=== PATIENT | female | born 1945 | race Caucasian/White ===

== ENCOUNTER 2018-07-15 09:04 | Emergency (ER) | payer MEDICARE, OTHER ==
--- NOTE | 2018-07-15 09:12 | UC ---
Laceration HPI - HPI Summary HPI Summary: 72 yo female presents with left finger laceration. She tells me that she was out to dinner last night and cut her left index finger on a chair. Took a "chunk " out of her finger. She applied a bandage and the bleeding stopped. This morning removed the bandage and it was bleeding again. Unsure date of last tetanus. - History Of Current Complaint Stated Complaint: FINGER LAC Time Seen by Provider: 07/15/18 09:12 Hx Obtained From: Patient Laceration Location: Finger Mechanism Of Injury: Sharp Trauma Onset/Duration: Sudden Onset Severity: Mild Pain Intensity: 4 Pain Scale Used: 0-10 Numeric - Allergies/Home Medications Allergies/Adverse Reactions: Allergies Allergy/AdvReac Type Severity Reaction Status Date / Time codeine Allergy anaph Verified 07/15/18 09:23 Home Medications: Home Medications Escitalopram (NF) [Lexapro 10 mg (NF)] 10 mg PO DAILY 07/15/18 [History Confirmed 07/15/18] Levothyroxine Sodium 1 tab PO DAILY 07/15/18 [History Confirmed 07/15/18] PMH/Surg Hx/FS Hx/Imm Hx Endocrine History: Hypothyroidism Psychological History: Anxiety - Family History Known Family History: Positive: Hypertension - Social History Occupation: Retired Lives: With Family Alcohol Use: Occasionally Substance Use Type: None Smoking Status (MU): Never Smoked Tobacco Review of Systems All Other Systems Reviewed And Are Negative: Yes Constitutional: Positive: Negative Skin: Positive: Other - left index finger laceration Respiratory: Positive: Negative Cardiovascular: Positive: Negative Neurovascular: Positive: Negative Musculoskeletal: Positive: Negative Neurological: Positive: Negative Physical Exam - Summary Physical Exam Summary: GENERAL: NAD. WDWN. No pain distress. SKIN: Left index finger: Finger pad with 7mm superficial shear-like laceration. Mild active bleeding at inferior aspect. CHEST: No accessory muscle use. Breathing comfortably and in no distress. CV: Pulses intact. Cap refill <2seconds MSK: Left index finger FROM. NEURO: Alert. PSYCH: Age appropriate behavior. Triage Information Reviewed: Yes Vital Signs: Vital Signs: Temp Pulse Resp BP Pulse Ox 98.3 F 76 16 159/101 98 07/15/18 09:19 07/15/18 09:19 07/15/18 09:19 07/15/18 09:19 07/15/18 09:19 Vital Signs Reviewed: Yes Laceration Course/Dx - Course/Dx Course Of Treatment: Area was irrigated with 100mL NS. tdap updated today. 1.0cm gel foam applied to the area and bandaged with tubegauze. - Diagnosis Provider Diagnosis: Laceration of left index finger Discharge - Sign-Out/Discharge Documenting (check all that apply): Patient Departure All imaging exams completed and their final reports reviewed: No Studies - Discharge Plan Condition: Stable Disposition: HOME Patient Education Materials: Laceration (DC) Referrals: Blade Lowry MD [Medical Doctor] - Additional Instructions: If you develop a fever, shortness of breath, chest pain, new or worsening symptoms - please call your PCP or go to the ED. Your blood pressure was high at todays visit. Please see your primary provider within 4 weeks for recheck and re-evaluation. 1) Keep today's bandaged intact for 24 hours and then may remove and cover with a band-aid until well healed (approx 7-14 days) - Billing Disposition and Condition Condition: STABLE Disposition: Home - Attestation Statements Provider Attestation: Per institutional requirements, I have reviewed the chart, however, I was not consulted specifically or made aware of this patient by the midlevel provider. I did not personally evaluate, interact with , or disposition this patient.
[2018-07-15 09:23] VITALS: BP 159/101
[2018-07-15] MEDS ORDERED: Gelfoam 12-7 ADSORBABL SPONGE* 1 EA SPONGE TOPICAL ONE (09:39)
[2018-07-15] MEDS ORDERED: Tetan/Diph/Pertus SYR(Tdap)* 0.5 ML SYR(BOOSTRIX) use SYR IM ONE (09:39)
== END 2018-07-15 10:06 | disposition home or self-care (01) ==
LOC: UCEAST 09:04
DX: S61.211A Laceration without foreign body of left index finger without damage to nail, initial encounter (principal); Z88.5 Allergy status to narcotic agent; W45.8XXA Other foreign body or object entering through skin, initial encounter; Y92.9 Unspecified place or not applicable
CPT/HCPCS: 90471; 90715; 99212; A9270-GY; G0463

== ENCOUNTER 2018-07-28 12:44 | Emergency (ER) | payer MEDICARE, OTHER ==
[2018-07-28 13:16] VITALS: BP 156/78
--- NOTE | 2018-07-28 13:48 | UC ---
Skin Complaint HPI - HPI Summary HPI Summary: L index finger painful and swollen 4 days. she had a very large cut a couple of weeks ago and came to urgent care for repair. gelfoam used and she is wondering if there is infection. she can't tell if there was discharge 2 days ago. - History of Current Complaint Chief Complaint: UCWounds Time Seen by Provider: 07/28/18 13:42 Stated Complaint: RECHECK OF FINGER WOUND Hx Obtained From: Patient Pain Intensity: 3 Pain Scale Used: 0-10 Numeric - Allergy/Home Medications Allergies/Adverse Reactions: Allergies Allergy/AdvReac Type Severity Reaction Status Date / Time codeine Allergy anaph Verified 07/28/18 13:16 Home Medications: Home Medications Calcium Carbonate [Calcium] 1 tab PO DAILY 07/28/18 [History Confirmed 07/28/18] Cholecalciferol (Vitamin D3) [Kp Vitamin D3] 1,000 unit PO DAILY 07/28/18 [ History Confirmed 07/28/18] Multivitamin [Multivitamins] 1 cap PO DAILY 07/28/18 [History Confirmed 07/28/18 ] Vened[place]ia-3 Fatty Acids/Fish Oil [Fish Oil 1,000 mg Softgel] 1 tab PO DAILY [History Confirmed 07/28/18] PMH/Surg Hx/FS Hx/Imm Hx Previously Healthy: Yes Endocrine History: Thyroid Disease - Surgical History Surgical History: Yes Surgery Procedure, Year, and Place: tubes tied. T&A - Family History Known Family History: Positive: Hypertension - Social History Alcohol Use: None Substance Use Type: None Smoking Status (MU): Never Smoked Tobacco Review of Systems All Other Systems Reviewed And Are Negative: Yes Constitutional: Positive: Negative. Negative: Fever Respiratory: Positive: Negative Cardiovascular: Positive: Negative Neurovascular: Negative: Decreased Sensation, Decreased Pulses Musculoskeletal: Positive: Other: - L index pain Physical Exam Triage Information Reviewed: Yes Appearance: Well-Appearing Vital Signs: Initial Vital Signs Temp 98 F 07/28/18 13:10 Pulse 65 07/28/18 13:10 Resp 18 07/28/18 13:10 BP 156/78 07/28/18 13:10 Pulse Ox 97 07/28/18 13:10 Neck: Positive: Supple Respiratory Exam: Normal Cardiovascular Exam: Normal Cardiovascular: Positive: Brisk Capillary Refill - R hand Musculoskeletal: Positive: Other: - L index had healing wound w/ small piece of gelfoam still on it. no purulent material. somewhat tender and swollen. No joint involvement. ROM intact of entire L hand and fingers. No nail involvement. Course/Dx - Course Course Of Treatment: Recent L index laceration recently repaired w/ gelfoam. Pt noticed L index pad swelling and becoming more red ; cellulitis dx'd. Will tx w/ antibx. Exam did not demonstrate fever, joint involvement and the streaking the patient thought she saw appeared to be in both hands which leads one to believe this was just when she closed both of her hands tightly. Streaks resolved after keeping her hands open. advised to go to ED should fever or swelling worsen. - Differential Diagnoses - Skin Complaint Differential Diagnoses: Abscess, Cellulitis, Other - Diagnoses Provider Diagnosis: Cellulitis Discharge - Sign-Out/Discharge Documenting (check all that apply): Patient Departure All imaging exams completed and their final reports reviewed: No Studies - Discharge Plan Condition: Good Disposition: HOME Prescriptions: Cephalexin CAP* [Keflex CAP*] 500 mg PO TID 5 Days #15 cap Referrals: Sada Beckham MD [Primary Care Provider] - Additional Instructions: Appears to be slowly improving w/ mild cellulitic infection. - Billing Disposition and Condition Condition: GOOD Disposition: Home
== END 2018-07-28 14:00 | disposition home or self-care (01) ==
LOC: UCEAST 12:44
DX: L03.012 Cellulitis of left finger (principal); Z88.5 Allergy status to narcotic agent
CPT/HCPCS: 99212; G0463